=== PATIENT | female | born 1960 | race American Indian/Alaskan Native ===

== ENCOUNTER 2024-07-15 16:13 | Emergency (ER) | payer MEDICARE, MEDICAID ==
[~2024-07-15] VITALS: Ht 154.9 cm; Wt 72.7 kg
[~2024-07-15 16:13] MED LIST: ALPR0.25; ALPR2TAB2 OR; AMIT25TA19; AMIT75TA6 OR; BACL20TA; PERCOCET; PERCOT; PREMARIN; VENL75CA3; VENL75CA3 OR
--- NOTE | 2024-07-15 16:21 | ED.PDOC ---
History of Present Illness HPI Comments 64F BIBA w/ prior Hx of FRANKLIN which may be associated to the c/c of a FRANKLIN. EMS report the pt having the FRANKLIN this morning and has been increasing in pain. EMS state that the pt was filing paperwork at the [facility]. When EMS arrived on scene the pt informed EMS that she is having chest tightness while being hypertensive of 210/65. PMHx of Anxiety, High Lipids, and Thyroid. SHx of Left foot, Left shoulder and Left hip Sx, Appendectomy and Hysterectomy. Family Hx of Cancer and DM. Denies chills, fever, N/V/D, SOB, or other associated symptom's, modifiers, or recent injuries or sick contact at this time. Time Seen by MD: 16:10 Primary Care Provider: PAGE Reviewed Notes: Nurses Notes, Orthotist/Prosthetist Notes, Medications, Allergies Allergies: Coded Allergies: NO KNOWN ALLERGIES (Unverified , 08/11/11) Home Meds Reported Medications Alprazolam (Xanax) 0.25 Mg Tb, DAILY 09/25/11 Oxycodone W/ Acetaminophen (Percocet 5/325MG) 1 Tab Tb 09/25/11 Baclofen (Baclofen) 20 Mg Tab 09/25/11 Amitriptyline Hcl (Elavil) 25 Mg Tb, BID 09/25/11 Venlafaxine Hydrochloride (Effexor Xr) 75 Mg Cap, DAILY 09/25/11 Alprazolam (Xanax) 2 Mg Tab, 2 MG OR HS 08/11/11 Amitriptyline Hcl (Amitriptyline Hcl) 75 Mg Tab, 75 MG OR HS 08/11/11 Venlafaxine Hydrochloride (Effexor Xr) 75 Mg Cap, 75 MG OR BID 08/11/11 [Premarin] No Conflict Check, 0.552 MG QAM 08/11/11 [ Percocet] No Conflict Check, 10 - 650 MG QID 08/11/11 Information Source: Patient, Emergency Med Personnel Mode of Arrival: EMS Severity: Moderate Timing: Hours Duration: Since onset, Hours Prehospital treatment: None Past Medical History PAST MEDICAL HISTORY: Anxiety, High Lipids, Thyroid Past Medical History (Other): FRANKLIN Surgical History: Appendectomy, Hysterectomy Surgical History (Other): Left foot Sx, left Shoulder Sx and Left Hip Sx PRIMARY TEACHING ASSISTANT History: No Pertinent PRIMARY TEACHING ASSISTANT History Family History Family History: Reviewed,noncontributory to illness, Family hx of DM, Family hx of Cancer Social History Smoker: Non-Smoker Alcohol: Denies ETOH Use Drugs: Denies Drug Use Lives In: Home Constitutional: denies: chills, diaphoresis, fatigue, fever, malaise, sweats, weakness, others EENTM: denies: blurred vision, double vision, ear bleeding, ear discharge, ear drainage, ear pain, ear ringing, eye pain, eye redness, hearing loss, mouth pain, mouth swelling, nasal discharge, nose bleeding, nose congestion, nose pain, photophobia, tearing, throat pain, throat swelling, voice changes, others Respiratory: denies: cough, hemoptysis, orthopnea, SOB at rest, shortness of breath, SOB with excertion, stridor, wheezing, others Cardiovascular: reports: chest pain; denies: dizzy spells, diaphoresis, Dyspnea on exertion, edema, irregular heart beat, left arm pain, lightheadedness, palpitations, PND, syncope, others Gastrointestinal: denies: abdomen distended, abdominal pain, blood streaked bowels, constipated, diarrhea, dysphagia, difficulty swallowing, hematemesis, melena, nausea, poor appetite, poor fluid intake, rectal bleeding, rectal pain, vomiting, others Genitourinary: denies: abnormal vagina bleeding, burning, dyspareunia, dysuria, flank pain, frequency, hematuria, incontinence, pain, , vagina discharge, urgency, others Neurological: reports: headache; denies: dizziness, fainting, left sided n umbness, left sided weakness, numbness, paresthesia, pre-existing deficit, right sided numbness, right sided weakness, seizure, speech problems, tingling, tremors, weakness, others Musculoskeletal: denies: back pain, gout, joint pain, joint swelling, muscle pain, muscle stiffness, neck pain, others Integumetry: denies: bruises, change in color, change in hair/nails, dryness, laceration, lesions, lumps, rash, wounds, others Allergic/Immunocompromised: denies: Difficulty Healing, Frequent Infections, Hives, Itching, others Hematologic/Lymphatic: denies: anemia, blood clots, easy bleeding, easy bruising, swollen glands, others Endocrine: denies: excessive hunger, excessive sweating, excessive thirst, excessive urination, flushing, intolerance to cold, intolerance to heat, unexpl ained weight gain, unexplained weight loss, others Psychiatric: denies: anxiety, bipolar disorder, depression, hopeless, panic disorder, schizophrenia, sleepless, suicidal, others All Other Systems: Reviewed and Negative Physical Exam General Appearance: No Apparent Distress HEENT: Normal ENT Inspection, Pharynx Normal, TMs Normal Neck: Full Range of Motion, Non-Tender, Normal, Normal Inspection Respiratory: Chest Non-Tender, Lungs Clear, No Accessory Muscle Use, No Respiratory Distress, Normal Breath Sounds Cardiovascular: No Edema, No JVD, No Murmur, No Gallop, Normal Peripheral Pulses, Regular Rate/Rhythm Breast Exam: Deferred Gastrointestinal: No Organomegaly, Non Tender, No Pulsatile Mass, Normal Bowel Sounds, Soft Genitalia: Deferred Pelvic: Deferred Rectal: Deferred Extremities: No calf tenderness, Normal capillary refill, Normal inspection, Normal range of motion, Non-tender, No pedal edema Musculoskeletal : Apperance: Normal Neurologic: Alert, aerial gunner superintendent II-XII nml as Tested, No Motor Deficits, Normal Affect, Normal Mood, No Sensory Deficits Cerebellar Function: Normal Reflexes: Normal Skin: Dry, Normal Color, Warm Lymphatic: No Adenopathy Was a procedure done? Was a procedure done?: No Differential Dx Considerations may include: Generalized weakness Hypertensive urgency, migraine headache X-Ray, Labs, Meds, VS Vital Signs Date Time Temp Pulse Resp B/P (MAP) Pulse Ox O2 Delivery O2 Flow Rate FiO2 07/15/24 17:02 98.1 83 19 150/91 (110) 99 98.1 07/15/24 17:02 83 19 99 Room Air 07/15/24 16:31 98.3 92 16 165/105 (125) 96 Lab Test 07/15/24 16:47 Range/Units White Blood Count 5.7 4.4-10.8 10^3/uL Red Blood Count 4.35 4.0-5.20 10^6/uL Hemoglobin 14.6 12.2-16.2 g/dL Hematocrit 42.6 36.0-46.0 % Mean Corpuscular Volume 98.0 80.0-100.0 fL Mean Corpuscular Hemoglobin 33.5 H 28.0-32.0 pg Mean Corpuscular Hemoglobin Concent 34.2 32.0-36.0 g/dL Red Cell Distribution Width 12.2 11.8-14.3 % Platelet Count 231 140-450 10^3/uL Mean Platelet Volume 8.6 6.9-10.8 fL Neutrophils (%) (Auto) 40.1 37.0-80.0 % Lymphocytes (%) (Auto) 50.2 H 10.0-50.0 % Monocytes (%) (Auto) 7.9 0.0-12.0 % Eosinophils (%) (Auto) 1.5 0.0-7.0 % Basophils (%) (Auto) 0.3 0.0-2.0 % Neutrophils # (Auto) 2.3 1.6-8.6 10 ^3/uL Lymphocytes # (Auto) 2.9 0.4-5.4 10 ^3/uL Monocytes # (Auto) 0.5 0-1.3 10 ^3/uL Eosinophils # (Auto) 0.1 0-0.8 10 ^3/uL Basophils # (Auto) 0 0-0.2 10 ^3/uL Nucleated Red Blood Cells 0.2 % Sodium Level 141 136-145 mmol/L Potassium Level 4.3 3.5-5.1 mmol/L Chloride Level 107 98-107 mmol/L Carbon Dioxide Level 27 20-31 mmol/L Anion Gap 7 5-15 Blood Urea Nitrogen 24 H 9-23 mg/dL Creatinine 1.02 0.550-1.02 mg/dL Glomerular Filtration Rate Calc 62 >90 mL/min BUN/Creatinine Ratio 23.5 H 10.0-20.0 Serum Glucose 89 74-106 mg/dL Calcium Level 9.4 8.7-10.4 mg/dL Troponin I High Sensitivity 3 L </=34 ng/L Current Medications Medications (Trade) Dose Ordered Sig/Ritu Route Start Time Stop Time Status Last Admin Acetaminophen/ Hydrocodone Bitart (Cades 10/325MG Tab) 1 tab ONCE ONCE PO 07/15/24 16:30 07/15/24 16:31 DC 07/15/24 17:10 Sumatriptan Succinate (Imitrex Inj) 6 mg ONCE ONCE SC 07/15/24 17:15 07/15/24 17:16 DC 07/15/24 17:35 Time of 1ST Reevaluation: 16:40 Reevaluation 1ST: Unchanged Patient Education/Counseling: Diagnosis, Treatment, Prognosis, Need For Follow Up Family Education/Counseling: No Family Present Departure 1 Departure Time of Disposition: 19:13 Impression: Primary Impression: Migraine headache Qualified Codes: G43.909 - Migraine, unspecified, not intractable, without status migrainosus Additional Impression: Hypertensive urgency Disposition: 01 HOME / SELF CARE / HOMELESS Condition: Fair Discharged With: Self Critical Care Note Critical Care Time?: No Stability Stability form required: No Heart Score Heart Score: Heart Score Response (Comments) Value History N/A 0 EKG N/A 0 Age N/A 0 Risk Factors N/A 0 Troponin N/A 0 Total 0 I personally scribed for DEEP HYLTON MD ([email or web address]) on 07/15/24 at 16:21. Electronically submitted by Judson Templeton ([email or web address]). DEEP HYLTON MD Jul 15, 2024 16:21
--- NOTE | 2024-07-15 16:41 | DVH ---
CHEST RADIOGRAPH Indication: cp Technique: Single frontal view of the chest was obtained COMPARISON: None FINDINGS: Lines and Tubes: None Lungs: Clear Pleura: No effusion. No pneumothorax. Cardiomediastinal contours: Unremarkable Bones: Unremarkable IMPRESSION: No acute disease.
[2024-07-15] MEDS: cloNIDine HCL 0.1 MG TAB PO ONE ×2 (17:01→20:03)
[2024-07-15] MEDS: HYDROcodone-ACET 10/325MG TAB PO ONE (17:10)
[2024-07-15 17:15] LABS: Basophils # (auto) 0 10 ^3/uL (0-0.2); Basophils % (auto) 0.3 % (0.0-2.0); Eosinophils # (auto) 0.1 10 ^3/uL (0-0.8); Eosinophils % (auto) 1.5 % (0.0-7.0); Hematocrit 42.6 % (36.0-46.0); Hemoglobin 14.6 g/dL (12.2-16.2); Lymphocytes # (auto) 2.9 10 ^3/uL (0.4-5.4); Lymphocytes % (auto) 50.2 % (10.0-50.0); Mean Corpuscular Hemoglobin 33.5 pg (28.0-32.0); Mean Corpuscular Hgb Conc. 34.2 g/dL (32.0-36.0); Monocytes # (auto) 0.5 10 ^3/uL (0-1.3); Monocytes % (auto) 7.9 % (0.0-12.0); Neutrophils # (auto) 2.3 10 ^3/uL (1.6-8.6); Neutrophils % (auto) 40.1 % (37.0-80.0); Nucleated Red Blood Cells % 0.2 %; Platelet Count (auto) 231 10^3/uL (140-450); Red Blood Cells 4.35 10^6/uL (4.0-5.20); Red Cell Distribution Width 12.2 % (11.8-14.3); White Blood Cell 5.7 10^3/uL (4.4-10.8)
[2024-07-15 17:23] LABS: Chloride 107 mmol/L (98-107); Potassium 4.3 mmol/L (3.5-5.1); Sodium 141 mmol/L (136-145)
[2024-07-15 17:24] LABS: Anion Gap 7 (5-15); Carbon Dioxide 27 mmol/L (20-31)
[2024-07-15 17:25] LABS: Calcium 9.4 mg/dL (8.7-10.4)
[2024-07-15 17:29] LABS: BUN/Creatinine Ratio 23.5 (10.0-20.0); Glucose 89 mg/dL (74-106)
[2024-07-15] MEDS: SUMAtriptan SUCCINATE 6 MG/0.5 ML VL SC ONE (17:35)
[2024-07-15 18:10] LABS: Blood Urea Nitrogen 24 mg/dL (9-23)
--- NOTE | 2024-07-15 18:50 | DVH ---
EXAM: CT HEAD WITHOUT CONTRAST INDICATION: pain TECHNIQUE: CT of the head without intravenous contrast. Radiation Dose : 1. Head: CT Dose: CTDI volume is 53 mGy. Dose-length product is 932 mGy*cm The dose indicators for CT are the volume Computed Tomography (CT) Dose Index (CTDIvol) and the Dose Length Product (DLP), and are measured in units of mGy and mGy-cm, respectively. These indicators are not patient dose, but values generated from the CT scanner acquisition factors. The report includes radiation exposure data for exposures received during this examination. COMPARISON: None FINDINGS: There is no evidence of acute intracranial hemorrhage, extra-axial collection, mass effect, midline s hift, herniation or hydrocephalus. The ventricles, sulci and cisterns are age appropriate. The hwang-white differentiation is intact. Patchy periventricular and subcortical white matter hypoattenuation is nonspecific but may be related to small vessel ischemic disease. The visualized paranasal sinuses and mastoid air cells are clear. Small surgical screws seen in the left parietal bone. Focal atrophy seen of the posterior left temporal lobe. No prior studies available for comparison. IMPRESSION: 1. Focal mild atrophic changes of the posterior left temporal lobe Normal ventricles No intracranial hemorrhage or extra-axial fluid collections MRI imaging recommended if clinical symptoms persist Radiation optimization: All CT scans at this facility use at least one of these dose optimization haleigh hniques: automated exposure control mA and/or kV adjustment per patient size (includes targeted exam s where dose is matched to clinical indication) or iterative reconstruction.
[2024-07-15 20:04] VITALS: PULSE 84; RESP 16; TEMP 98.4; O2SAT 98
[2024-07-15 20:21] VITALS: BP 147/92; PULSE 73; RESP 16; O2SAT 98
== END 2024-07-15 20:23 | disposition home or self-care (01) ==
LOC: ER 16:13 → EDBD 16:13 → ER 20:23
DX: I16.0 Hypertensive urgency (principal); G43.909 Migraine, unspecified, not intractable, without status migrainosus; F41.9 Anxiety disorder, unspecified; E78.5 Hyperlipidemia, unspecified; E03.9 Hypothyroidism, unspecified; Z90.49 Acquired absence of other specified parts of digestive tract; Z90.710 Acquired absence of both cervix and uterus; Z79.899 Other long term (current) drug therapy; Z98.890 Other specified postprocedural states
CPT/HCPCS: 36415; 70450; 71045; 80048; 84484; 85025; 96372